=== PATIENT | female | born 1965 | race Caucasian/White ===

== ENCOUNTER 2016-06-03 07:21 | Day surgery (SDC) | payer BC ==
[~2016-06-03 07:21] MED LIST: Buffered Lidocaine 1% SYR 3ML* 3 ML/SYR SYRINGE INTRADERM ONE; Famotidine IV* 10 MG/ML 2 ML (20 mg) IV ONE
[2016-06-03] MEDS ORDERED: Famotidine IV* 10 MG/ML 2 ML (20 mg) ONE (07:30)
[2016-06-03] MEDS ORDERED: ceFAZolin 2 GM PREMIX (*) 2 GM/50 ML BAG IVPB ONE (07:50)
[2016-06-03] MEDS ORDERED: HYDROcodone/ACETAMIN 5-325 MG* 1 TAB PO PRN (08:19)
[2016-06-03] MEDS ORDERED: Ondansetron INJ* 2 MG/ML VIAL IV PRN (08:19)
[2016-06-03] MEDS ORDERED: Acetaminophen TAB* 325 MG PO PRN (08:19)
[2016-06-03] MEDS ORDERED: DiMENhydriNATE IV* 50 MG/ML VIAL IV PUSH PRN (08:19)
[2016-06-03] MEDS ORDERED: fentaNYL* 50 MCG/ML 2 ML VIAL (100 MCG VIAL) ONE (08:28)
[2016-06-03] MEDS ORDERED: Midazolam* 1 MG/ML 2 ML VIAL (2 MG) ONE ×2 (08:28→09:00)
[2016-06-03] MEDS ORDERED: Bupivacaine 0.5% SDV PF* 30 ML VIAL ONE (08:38)
[2016-06-03] MEDS ORDERED: Lidocaine 1% INJ* 10 MG/ML 30 ML SDV ONE (08:38)
[2016-06-03] MEDS ORDERED: Propofol* 10 MG/ML 20 ML BTL IV PUSH ONE (09:26)
[2016-06-03] MEDS ORDERED: Lidocaine 2% PF * 5 ML VIAL ONE (09:26)
[2016-06-03 10:08] VITALS: BP 121/79
--- NOTE | 2016-06-03 19:39 | OP ---
DATE OF OPERATION: 06/03/16 [facility] SURGEON: Mich Mireles DPM DIRECTOR PERIOPERATIVE: None. ANESTHESIOLOGIST: Dr. Ling ANESTHESIA: MAC and local. PRE-OP DIAGNOSIS: Painful cyst in the retro Achilles aspect of the posterolateral right heel. It is believed to be some associated neuritis. POST-OP DIAGNOSIS: Painful cyst in the retro Achilles aspect of the posterolateral right heel. It is believed to be some associated neuritis. OPERATIVE PROCEDURE: Excision of painful cyst from posterior lateral right heel. PATHOLOGY: Excised cyst. HEMOSTASIS: Pneumatic ankle tourniquet. ESTIMATED BLOOD LOSS: Less than 3 cc. INDICATIONS: The patient with painful subcutaneous cyst in the posterolateral aspect of the right heel with MRI demonstrating retro Achilles bursitis with complex ganglion cyst. She has pain wearing closed shoes and while walking and opts for surgery this time to excise the cyst. DESCRIPTION OF PROCEDURE: The patient was brought to the operating room, placed on the operating table in the prone position. The anesthesia department administered IV sedation, and a peripheral block was performed about the right posterior heel with a 1:1 mixture of 1% lidocaine plain and 0.5% Marcaine plain. Care was taken to avoid any trauma or compromising the Achilles tendon. The right foot was prepped and draped in the usual fashion. An Esmarch bandage was utilized to exsanguinate the right foot and the pneumatic ankle tourniquet was inflated to 250 mmHg above a well-padded right lower leg. Attention was directed to the posterolateral aspect of the right heel where visible and palpable subcutaneous cyst was noted. Curvilinear incision was made just lateral to the Achilles tendon. The incision is deepened to subcutaneous tissues with care being taken to retract neurovascular structures and cauterize superficial bleeders as needed. Dissection was carried down to the subcutaneous tissue and the cyst was quite evident. It appeared well encapsulated and using sharp and blunt instrumentation, the cyst was freed from surrounding soft tissue attachment, also taking a small portion of soft tissue adjacent to the cyst. Deeply, the cyst was closely approximated to, but did not appear in this tissue to be connected to the Achilles tendon. It should be noted that Achilles tendon was protected throughout the procedure without any penetration or trauma to the tendon. The cyst was sent off the field as specimen. The remainder of the area was inspected with no further visible portions of inflammatory or other cystic tissue. The surgical site was flushed with copious amounts of normal sterile saline. The subcutaneous tissues were reapproximated and secured with 4-0 Polysorb and skin was reapproximated and secured with 5-0 nylon. The surgical site was dressed with Xeroform gauze and a late sterile compressive dressing with 4x4 gauze, Halle, and a light Coban wrap. The pneumatic ankle tourniquet was deflated on the right and a prompt hyperemic response was noted about all 5 digits on the patient's right foot. Having appeared to have tolerated the procedures and anesthesia well, the patient was transported via cart from the operating room to Recovery in satisfactory condition with capillary refill less than 3 seconds to all digits of the right foot. [id number]/[facility] #: [id number] LISA
== END 2016-06-03 10:10 | disposition home or self-care (01) ==
LOC: OREAST 07:21
PROVIDERS: ATTEND Podiatrist Foot Surgery
DX: D21.21 Benign neoplasm of connective and other soft tissue of right lower limb, including hip (principal)
CPT/HCPCS: 88305; J0690; J2250; J2704; J3010